=== PATIENT | female | born 1945 | race Caucasian/White ===

== ENCOUNTER 2019-04-16 10:33 | Emergency (ER) | payer MEDICARE, OTHER ==
[~2019-04-16] VITALS: Ht 180.3 cm; Wt 122.5 kg
[2019-04-16] MEDS ORDERED: IBUPROFEN 600 MG TAB PO ONE (10:34)
--- OUTSIDE RECORDS SUMMARY | 2019-04-16 10:35 | XMS REPORT ---
[facility] Address Unknown Phone Unavailable Care Team Providers Care Process Helper Name Role Phone Unavailable Unavailable Payers Payer Name Policy Type Policy Number Effective Date Expiration Date Problems This patient has no known problems. Allergies, Adverse Reactions, Alerts Allergy Name Allergy Type Status Severity Reaction(s) Onset Date Inactive Date Treating Clinician Comments hyoscyamine sulfate DA Active NC 2009-10-02 00:00:00 Milk Containing Products DA Active U 2009-10-02 00:00:00 codeine DA Active NC 2009-10-02 00:00:00 adhesive DA Active NC 2009-10-02 00:00:00 cortisone DA Active NC 2009-10-02 00:00:00 .TROCINATE DA Active MO 2009-09-24 00:00:00 MOLD/MILDEW/INHALANTS DA Active U 2009-09-24 00:00:00 Medications This patient has no known medications. Results Test Description Test Time Test Comments Text Results Atomic Results Result Comments - XR CHEST 2 V 2018-07-15 15:51:00 FAX: Osmany Russell MD [phone] [facility]: [facility]: REG FAX: Radha Estevez MD [phone] Name: PEDRO STEELE [facility] : 1945 Age/S: 72/F [address] Unit #: [id number] Loc: [place] [address] Phys: Osmany Ruano MD Acct: [id number] Dis Date: Status: REG CLI PHONE #: [phone] Exam Date: 07/15/2018 1523 FAX #: [phone] Reason: CP EXAMS: CPT CODE: [id number] XR CHEST 2 V 88406 REASON FOR EXAM: CP Exam Order Date: 07/15/2018 3:17 PM Ordering M.Trevor: Osmany Ruano MD PROCEDURE: - XR CHEST 2 V COMPARISON: FINDINGS: PA and lateral views of the chest show clear lungs without evidence of consolidation. No evidence of effusion. The heart size is minimally enlarged. Pulmonary vasculatures are unremarkable. The osseous structures are grossly intact. IMPRESSION: Minimal cardiomegaly at 1551 Reported and signed by: Lonny Ibarra M.D. CC: Osmany Ruano MD; Radha Ye MD Technologist: Alma Delia Fontana(Eduin) Trnscrd Date/Time/By: 07/15/2018 (2203) : By: Morteza Orig Print D/T: S: 07/15/2018 (5298) PAGE 1 Signed Report
[2019-04-16] MEDS ORDERED: HYDROCODONE/APAP 10MG-325MG TAB PO ONE (10:45)
--- NOTE | 2019-04-16 11:53 | Diagnostic Imaging Report ---
Exam: Right shoulder radiographs-3 views History: Fall. Comparison: None. Findings/Impression: No evidence of acute fracture or malalignment. There are mild degenerative changes of the right glenohumeral and acromioclavicular joints. Signed by: Dr. Nir Alegria MD on 04/16/2019 11:51 AM
--- NOTE | 2019-04-16 13:45 | Diagnostic Imaging Report ---
History: Fall, pain Comparison studies:None Technique: Axial images were obtained from the brain and cervical spine. Coronal and sagittal images reconstructed from the axial data. Intravenous contrast: None Dose modulation, iterative reconstruction, and/or weight based adjustment of the mA/kV was utilized to reduce the radiation dose to as low as reasonably achievable. Findings: Head CT: Scalp/skull: No abnormalities. No fractures, blastic or lytic lesions. Brain sulci: Age-appropriate. Ventricles: Age-appropriate. No hydrocephalus. Parenchyma: Few faint hypodensities in the supratentorial white matter are small vessel ischemic changes. No masses, hemorrhage, acute or chronic cortical vascular insults. Sellar/suprasellar region: No abnormalities. Craniocervical junction: Patent foramen magnum. No Chiari one malformation. Incidental findings: Atherosclerotic calcifications in the carotid siphons . Cervical spine CT: Fractures: None. Soft tissues: No gross abnormalities. Atlantoaxial articulation: No acute abnormality. Alignment: Straightening of the normal lordosis. No scoliosis. Cervicomedullary junction: No abnormalities. Patent foramen magnum. Vertebrae: No infection or neoplasm. Degenerative changes: Degenerative foraminal narrowing, severe left at C3-4, mild left at C4-5, mild bilateral at C5-6, moderate right at C6-7. Incidental findings: None. Impression: Head CT: 1. No acute intracranial abnormality. Cervical spine CT: 1. No acute abnormalities. 2. Cannot exclude ligament, spinal cord and or vascular abnormalities on the basis of this examination. Signed by: DR Sudarshan Huitron M.D. on 04/16/2019 1:43 PM
--- NOTE | 2019-04-16 14:38 | Diagnostic Imaging Report ---
EXAM: CT Chest without contrast INDICATION: Status post fall. COMPARISON: None TECHNIQUE: Chest was scanned utilizing a multidetector helical scanner from the lung apex through the level of the adrenal glands without administration of IV contrast. Coronal and sagittal reformations were obtained. Routine protocol was performed. Dose modulation, iterative reconstruction, and/or weight based adjustment of the mA/kV was utilized to reduce the radiation dose to as low as reasonably achievable. IV CONTRAST: 100 mL of Omnipaque 300 Estimated effective dose: (DLP x 0.014 x size factor) mSv COMPLICATIONS: None FINDINGS: LINES/ TUBES: None. LUNGS AND AIRWAYS: The central airways are patent. Mild biapical pleural-parenchymal opacity, suggestive of prior granulomatous disease. There is a 4 mm subpleural nodular opacity in the left upper lobe on series 12, image 20. PLEURA: The pleural spaces are clear. HEART AND MEDIASTINUM: The thyroid gland is normal. No mediastinal, hilar or axillary lymphadenopathy. Prominent 0.9 cm right paratracheal lymph node with fatty hilum, likely reactive. The heart is normal in size.. There is no pericardial effusion. Scattered atherosclerotic calcifications of the aorta and coronary arteries. UPPER ABDOMEN: Limited non-contrast views of the upper abdomen. Status post cholecystectomy. BONES: No evidence of acute fracture. SOFT TISSUES: Unremarkable. IMPRESSION: No evidence of acute noncontrast CT abnormality in the chest. Signed by: Dr. Nir Alegria MD on 04/16/2019 2:36 PM
[2019-04-17] MEDS ORDERED: LIDOCAINE 4% PATCH TP ONE (09:00)
== END 2019-04-16 15:38 | disposition home or self-care (01) ==
LOC: ER 10:33
DX: S40.011A Contusion of right shoulder, initial encounter (principal); W01.0XXA Fall on same level from slipping, tripping and stumbling without subsequent striking against object, initial encounter; Y92.008 Other place in unspecified non-institutional (private) residence as the place of occurrence of the external cause; Z87.01 Personal history of pneumonia (recurrent); Z85.828 Personal history of other malignant neoplasm of skin
CPT/HCPCS: 70450; 71250; 72125; 99283

== ENCOUNTER → 2020-12-10 | Day surgery (SDC) | payer MEDICARE ==
[2020-12-05 12:01] LABS: BASOPHILS # (AUTO) 0.1 (0.0-0.1); BASOPHILS % 0.6 % (0.0-1.0); EOSINOPHILS # (AUTO) 0.4 (0.0-0.4); EOSINOPHILS % 4.2 % (0.0-6.0); HEMATOCRIT 32.2 % (34.2-44.1); HEMOGLOBIN 9.6 g/dL (12.0-16.0); LYMPHOCYTES # (AUTO) 2.5 (1.0-3.2); LYMPHOCYTES % 26.1 % (18.0-39.1); MEAN CORPUSCULAR HEMOGLOBIN 27.3 pg (28-32); MEAN CORPUSCULAR HGB CONC 29.8 g/dL (31-35); MEAN CORPUSCULAR VOLUME 91.5 fL (81-99); MONOCYTES # (AUTO) 0.7 (0.2-0.8); MONOCYTES % 7.4 % (4.4-11.3); NEUTROPHILS # (AUTO) 5.9 (2.1-6.9); NEUTROPHILS % 61.2 % (38.7-80.0); PLATELET COUNT 230 x10e3/uL (140-360); RED BLOOD COUNT 3.52 x10e6/uL (3.6-5.1); RED CELL DISTRIBUTION WIDTH 15.7 % (11.7-14.4)
[2020-12-05 12:38] LABS: ALBUMIN 3.7 g/dL (3.5-5.0); ALBUMIN/GLOBULIN RATIO 1.2 (0.8-2.0); ANION GAP 11.6 mmol/L (8-16); CALCIUM 8.7 mg/dL (8.4-10.2); CREATININE, SERUM 0.83 mg/dL (0.57-1.11); POTASSIUM 4.6 mmol/L (3.5-5.1)
[~2020-12-10] VITALS: Ht 177.8 cm; Wt 121.6 kg
[~2020-12-10] MED LIST: ALPRAZOLAM 0.5 MG TAB ONE; CALTRATE 600 W1 EACH PO; CENTRUM SILVER1 EAC5 PO; CYTOTEC200 MCG PO; DICLOFENAC SODI50 MG PO; DICYCLOMINE HCL20 MG PO; DIPHENHYDRAMINE HCL 25 MG CAP ONE; FENTANYL CITRATE/PF 100MCG/2 ML INJ ONE; HEPARIN SOD/SOD CHLORIDE 2,000 ML ONE; IOPAMIDOL 370 MG/ML 200 ML INFUS..BTL INJ ONE; LIDOCAINE HCL 2% LOCAL 20 ML VIAL ONE; LOSARTAN POTASS25 MG PO; METOPROLOL TART50 MG PO; MIDAZOLAM HCL 2 MG/2 ML VIAL ONE; SIMVASTATIN40 MG PO; SODIUM CHLORIDE 0.9% 1000ML 1,000 ML ONE; ULTRAM 50MG50 MG PO; VITAMIN D3 PO; ZINC PO; ZYRTEC10 MG PO
[2020-12-10 10:06] VITALS: BP 140/50
[2020-12-10 13:42] VITALS: BP 143/59
[2020-12-10 13:53] VITALS: BP 140/68
[2020-12-10 14:09] VITALS: BP 145/62
[2020-12-10 14:22] VITALS: BP 116/56
== END | disposition home or self-care (01) ==
LOC: CATH LAB 09:44
PROVIDERS: ATTEND Internal Medicine Interventional Cardiology
DX: I25.118 Atherosclerotic heart disease of native coronary artery with other forms of angina pectoris (principal); R94.39 Abnormal result of other cardiovascular function study; I10 Essential (primary) hypertension; Z01.812 Encounter for preprocedural laboratory examination; Z20.822 Contact with and (suspected) exposure to COVID-19
CPT/HCPCS: 36415; 76937; 80053; 83880; 85025; 93454; C1887; J2001; J2250; J3010; J7030; Q9967; U0002; 99152

== ENCOUNTER 2021-12-06 09:30 | Emergency (ER) | payer MEDICARE, OTHER ==
[~2021-12-06] VITALS: Ht 177.8 cm; Wt 121.6 kg
[~2021-12-06 09:30] MED LIST changes: -ALPRAZOLAM 0.5 MG TAB ONE; -DIPHENHYDRAMINE HCL 25 MG CAP ONE; -FENTANYL CITRATE/PF 100MCG/2 ML INJ ONE; -HEPARIN SOD/SOD CHLORIDE 2,000 ML ONE; -IOPAMIDOL 370 MG/ML 200 ML INFUS..BTL INJ ONE; -LIDOCAINE HCL 2% LOCAL 20 ML VIAL ONE; -MIDAZOLAM HCL 2 MG/2 ML VIAL ONE; -SODIUM CHLORIDE 0.9% 1000ML 1,000 ML ONE
[2021-12-06] MEDS ORDERED: TETANUS/DIPHTHERIA TOX ADULT 0.5 ML SYR IM ONE (10:15)
[2021-12-06] MEDS ORDERED: HYDROCODONE/APAP 5MG-325MG TAB PO ONE (10:15)
[2021-12-06] MEDS ORDERED: ACETAMINOPHEN 325 MG TAB PO ONE (10:15)
[2021-12-06 11:55] VITALS: BP 138/51
== END 2021-12-06 11:59 | disposition home or self-care (01) ==
LOC: ER 09:32
DX: S20.211A Contusion of right front wall of thorax, initial encounter (principal); S63.591A Other specified sprain of right wrist, initial encounter; W01.0XXA Fall on same level from slipping, tripping and stumbling without subsequent striking against object, initial encounter; Y93.01 Activity, walking, marching and hiking; Y92.89 Other specified places as the place of occurrence of the external cause; I10 Essential (primary) hypertension; K21.9 Gastro-esophageal reflux disease without esophagitis; Z85.828 Personal history of other malignant neoplasm of skin; Z96.643 Presence of artificial hip joint, bilateral
CPT/HCPCS: 70450; 71250; 72125; 90714; 99284

== ENCOUNTER → 2022-01-07 | Outpatient (RCR) | payer MEDICARE | LOC: PT 15:28 | PROVIDERS: ATTEND Specialist | DX: M17.12 Unilateral primary osteoarthritis, left knee (principal) ==

== ENCOUNTER → 2022-01-13 | Outpatient (CLI) | payer MEDICARE | LOC: NM 07:17 | PROVIDERS: ATTEND Family Medicine | DX: E04.1 Nontoxic single thyroid nodule (principal) | CPT/HCPCS: 78014; A9516 ==

== ENCOUNTER → 2022-08-04 | Outpatient (CLI) | payer MEDICARE | LOC: DX 09:31 | PROVIDERS: ATTEND Family Medicine | DX: R13.12 Dysphagia, oropharyngeal phase (principal) | CPT/HCPCS: 74230 ==